=== PATIENT | female | born 1985 | race Caucasian/White ===

== ENCOUNTER → 2016-11-26 07:34 | Day surgery (SDC) | payer BC, OTHER ==
--- NOTE | 2016-11-05 08:26 | HP ---
PREOPERATIVE HISTORY AND PHYSICAL: DATE OF ADMISSION: 11/26/15 CHIEF COMPLAINT: Left wrist pain. HISTORY OF PRESENT ILLNESS: Ethel is a 31-year-old woman who injured her left wrist at work at [employer]. Date of injury is 10/16/13. 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 She has had conservative treatment, but now has failed that and presents for left wrist proximal row carpectomy for posttraumatic arthritis , which is formed from the scaphoid nonunion and she has carpal tunnel syndrome. She presents for treatment of both. PAST SURGICAL HISTORY: 1. Right little finger surgery. 2. Vein surgery in the right leg 3. Gastric sleeve 4. Cholecystectomy. MEDICATIONS: None. DRUG ALLERGIES: To NEXIUM, BACTRIM DOXYCYCLINE, PRILOSEC. FAMILY HISTORY: Noncontributory. SOCIAL HISTORY: She smokes a few cigarettes a day. She denies alcohol use. She is currently working. REVIEW OF SYSTEMS: Negative for cephalic, cardiovascular, respiratory, gastrointestinal, genitourinary, other musculoskeletal, skin, neurologic, endocrine, hematologic symptoms. She is having some symptoms from her right leg veins and has to have another vein surgery. PHYSICAL EXAMINATION GENERAL: She is a healthy-appearing very pleasant female in minimal distress at rest. VITAL SIGNS: She is 63 inches, weighs 250 pounds, blood pressure 116/70, pulse 60. HEENT: Unremarkable. She has good range of motion of her neck without pain and no masses are palpated. Her eye movements are concentric. LUNGS: Clear to auscultation. Good inspiratory effort. No wheezing. CARDIAC: Regular rate and rhythm without murmur. PERIPHERAL VASCULAR: She has palpable pulses. She has no peripheral edema. She has some prominent veins in her right lower extremity. EXTREMITIES: She has moderate decreased range of motion in flexion and extension of her left wrist. Tenderness at her dorsal radial carpal joint and positive Tinel's sign of the median nerve. NEUROLOGICAL: She is alert and oriented without focal deficits. IMPRESSION: Left carpal tunnel syndrome and scaphoid nonunion advanced collapse. PLAN: Left wrist proximal row carpectomy and carpal tunnel release. The surgical procedure, the risks and benefits were explained to the patient today and she agrees to proceed. This is approved by worker's comp. Prescription for [place] was sent to her pharmacy for postop pain control. We will her back in followup 10 to 14 days postop. [id number]/[facility] #: [id number] [place]
[~2016-11-26 07:34] MED LIST: Acetaminophen TAB* 325 MG PO PRN; Buffered Lidocaine 1% SYR 3ML* 3 ML/SYR SYRINGE INTRADERM ONE; Buffered Lidocaine 1% SYR 3ML* 3 ML/SYR SYRINGE ONE; Bupivacaine 0.5% SDV PF* 30 ML VIAL ONE; Dexamethasone IV* 4 MG/ML 1 ML (4 MG) ONE; Famotidine IV* 10 MG/ML 2 ML (20 mg) ONE; HYDROmorphone INJ* 1 MG/ML CARPUJECT SYRINGE IV PRN; Ketorolac INJ* 30 MG/ML 1 ML VIAL ONE; Lidocaine 0.5%* 50 ML SDV ONE; Lidocaine 1% INJ* 10 MG/ML 30 ML SDV ONE; Lidocaine 2% PF * 5 ML VIAL ONE; Midazolam* 1 MG/ML 2 ML VIAL (2 MG) ONE; Ondansetron INJ* 2 MG/ML VIAL IV PRN; PROCHLORPERAZINE INJ 5 MG/ML 2 ML VIAL IV PRN; Propofol* 10 MG/ML 20 ML BTL IV PUSH ONE; ceFAZolin 2 GM PREMIX (*) 2 GM/50 ML BAG IVPB ONE; fentaNYL* 50 MCG/ML 2 ML VIAL (100 MCG VIAL) ONE; oxyCODONE TAB* 5 MG TAB PO PRN
[2016-11-26 10:43] VITALS: BP 122/66
--- NOTE | 2016-11-27 02:09 | OP ---
CC: Dr. Diaz OPERATIVE REPORT: DATE OF OPERATION: 11/26/16 DATE OF : 87 SURGEON: Dr. Diaz. BREADMAN: MADELYN Gaines ANESTHESIA: IV regional. PRE-OP DIAGNOSIS: Scaphoid nonunion and carpal tunnel syndrome on the left wrist. POST-OP DIAGNOSIS: Scaphoid nonunion and carpal tunnel syndrome on the left wrist. OPERATIVE PROCEDURE: Left wrist proximal row carpectomy and carpal tunnel release. ESTIMATED BLOOD LOSS: Zero. TOURNIQUET TIME: About 45 minutes. INDICATIONS FOR PROCEDURE: Ethel is a 31-year-old female who had an injury at work. She suffered a fracture of her scaphoid and has a nonunion of proximal pole of the scaphoid with some early degene rative changes. She also has carpal tunnel syndrome, which has failed to improve with conservative measures. She presents for left carpal tunnel release and proximal row carpectomy. DESCRIPTION OF PROCEDURE: The patient was brought to the operating room, was given an IV regional a nesthetic with a tourniquet around her left upper arm. Skin of her left upper extremity was prepped and draped in the usual sterile fashion. A longitudinal incision was made in the palm in line with the ring finger. We dissected through the subcutaneous tissue, sharply down to the transverse carp al ligament. The ligament was divided sharply with a knife and then more proximally with the scisso rs. The nerve was dissected free from the surrounding tissue and there was an area of moderate comp ression at the mid portion of the ligament. The wound was irrigated and skin edges reapproximated w ith 4-0 nylon suture. Next, a dorsal longitudinal incision was made ulnar to Bouchra's tubercle, dis sected sharply down to the extensor retinaculum. The retinaculum was incised longitudinally in the third compartment and the EPL tendon transposed radially. The wrist joint capsule was then incised longitudinally and subperiosteally dissected off of the distal radius. This gave us good access to the proximal row carpal bones which were removed in their entirety with combination of a knife and r ongeur. The capitate articular surface was in excellent condition as was the lunate fossa. Capitate sat very nicely in the lunate fossa. The wound was copiously irrigated with saline and the wrist ca psule reapproximated with 2-0 Polysorb suture. Extensor retinaculum was repaired with 2-0 Polysorb s uture and the skin edges were reapproximated with 4-0 nylon suture. The wound was dressed with Xero form, 4x4, Webril, and volar splint. The patient tolerated the procedure well and was brought to doctors hospital recovery room in good condition. [id number]/[facility] #: [id number]
== END | disposition home or self-care (01) ==
LOC: OREAST 07:34
PROVIDERS: ATTEND Orthopaedic Surgery
DX: S62.032K Displaced fracture of proximal third of navicular [scaphoid] bone of left wrist, subsequent encounter for fracture with nonunion (principal); G56.02 Carpal tunnel syndrome, left upper limb; X50.3XXD Overexertion from repetitive movements, subsequent encounter; Y92.63 Factory as the place of occurrence of the external cause; F17.210 Nicotine dependence, cigarettes, uncomplicated
CPT/HCPCS: 88304; 88311; J0690; J1100; J1885; J2250; J2704; J3010

== ENCOUNTER 2018-02-12 17:12 | Emergency (ER) | payer BC ==
[2018-02-12 17:27] VITALS: BP 102/69
--- NOTE | 2018-02-12 18:32 | RAD ---
Indication: Low back pain. LEFT sciatica. LEFT lower extremity numbness. Comparison: No relevant prior exams available on the [facility] for comparison. Technique: AP, lateral, and oblique views lumbar sacral spine. Report: No cortical disruption or trabecular impaction to indicate a vertebral body fracture. Moderate L5-S1 disc space narrowing. Suggestion of bilateral L5 spondylolysis without associated spondylolisthesis. Multilevel facet joint osteoarthritis most prominent at L4-L5 and L5-S1. Unremarkable paraspinal soft tissue contours. IMPRESSION: Degenerative spondylosis and facet joint osteoarthritis most prominent at L5-S1. Suggestion of bilateral L5 spondylolysis without associated spondylolisthesis.
[2018-02-12] MEDS ORDERED: HYDROcodone/ACETAMIN 5-325 MG* 1 TAB PO ONE (19:00)
--- NOTE | 2018-02-12 20:30 | UC ---
Laci Harman Natalie, scribed for Charles Fitch MD on 02/12/18 at 1909 . Lower Extremity/Ankle HPI - HPI Summary HPI Summary: The patient is a 32 y/o F presenting to [facility] c/o intermittent left leg pain starting about 10 months ago, with a severe case of pain last night. The pain extends from her left buttock throughout her leg especially from her kneecap to ankle, and her left foot often becomes numb. The pain is described as burning and aching, and last night the pain was excruciating. Currently the pain is rated 2/10. The pain worsens when walking. She has taken Ibuprofen to treat the pain [employer]. 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 She stands a lot at work. - History of Current Complaint Chief Complaint: UCLowerExtremity Stated Complaint: LEG AND FOOT PAIN,NUMBNESS Time Seen by Provider: 02/12/18 17:39 Hx Obtained From: Patient Hx Last Menstrual Period: on merena Onset/Duration: Lasting Weeks - starting 10 months ago, Still Present, Worse Since - last night Severity Initially: Severe Severity Currently: Moderate Pain Intensity: 2 Pain Scale Used: 0-10 Numeric Aggravating Factor(s): Other - walking Alleviating Factor(s): Nothing Able to Bear Weight: Yes - Allergies/Home Medications Allergies/Adverse Reactions: Allergies Allergy/AdvReac Type Severity Reaction Status Date / Time banana Allergy Hives Verified 02/12/18 17:29 doxycycline Allergy Vomiting Verified 02/12/18 17:30 esomeprazole [From Nexium] Allergy Difficulty Verified 02/12/18 17:29 Breathing omeprazole [From Prilosec] Allergy Difficulty Verified 02/12/18 17:29 Breathing sulfamethoxazole Allergy GI Upset Verified 02/12/18 17:30 [From Bactrim] trimethoprim [From Bactrim] Allergy GI Upset Verified 02/12/18 17:30 Home Medications: Home Medications Ibuprofen [Advil] 800 02/12/18 [History] metFORMIN* [Glucophage 500 MG TAB *] 02/12/18 [History] PMH/Surg Hx/FS Hx/Imm Hx Previously Healthy: No GI/ History: Other - PCOS Other GI/ History: . - Surgical History Surgical History: None Surgery Procedure, Year, and Place: FINGER SURGERY, LEG VEIN LASER SURGERY, GASTRIC SLEEVE 2011 - Family History Known Family History: Negative: Hypertension - Social History Alcohol Use: None Substance Use Type: None Smoking Status (MU): Heavy Every Day Tobacco Smoker Type: Cigarettes Amount Used/How Often: 1/2 PPD Length of Time of Smoking/Using Tobacco: 12 YRS Have You Smoked in the Last Year: Yes Household Exposure Type: Cigarettes Review of Systems Musculoskeletal: Other: - left leg pain extending from buttock to ankle Neurological: Paresthesia - in left foot Is Patient Immunocompromised?: Yes All Other Systems Reviewed And Are Negative: Yes Physical Exam Triage Information Reviewed: Yes Appearance: Well-Appearing, No Pain Distress Vital Signs: Initial Vital Signs Temp 98.0 F 02/12/18 17:20 Pulse 58 02/12/18 17:20 Resp 16 02/12/18 17:20 BP 102/69 02/12/18 17:20 Pulse Ox 98 02/12/18 17:20 Vital Signs Reviewed: Yes Eyes: Positive: Other: - EOMI, KASH ENT: Positive: Normal ENT inspection Neck: Positive: Supple, Nontender Respiratory: Positive: Other: - CTA, breath sounds present Cardiovascular Exam: Normal Cardiovascular: Positive: RRR Abdominal Exam: Normal Abdomen Description: Positive: Nontender, Soft Bowel Sounds: Positive: Present Musculoskeletal: Positive: Strength Intact, ROM Intact, Other: - tenderness in low back and low SI joint through left buttock, reports decreased sensation in medial left foot, reflexes normal, capillary refill normal Neurological: Positive: Other: - normal, sensory/motor intact, A&O x3 Psychological Exam: Normal Psychological: Positive: Other: - affect/mood appropriate Skin: Positive: Other - warm, color reflects adequate perfusion, dry Diagnostics - Radiology Lumbar Spine XR Xray Interpretation: Positive (See Comments) - Degenerative spondylosis and facet joint osteoarthritis most prominent at L5-S1. Suggestion of bilateral L5 spondylolysis without associated spondylolisthesis. [facility] physician has reviewed this report. Radiology Interpretation Completed By: Radiologist Lower Extremity Course/Dx - Course Course Of Treatment: Medications reviewed. Allergies noted. PATIENT REPORTS NUMBNESS ON THE MEDIAL ASPECT OF THE LEFT FOOT. THIS IS INTERMITTENT. NO PERSISENT NEUROLOGIC DEFICIT. F/U PMD. DISCUSSED IF GETS PERSISTANT NEUROLOGIC DEFICIT OR WEAKNESS OR DIFFICULTY CONTROLLING BOWEL OR BLADDER TO GET RECHECKED RIGHT AWAY. - Differential Dx/Diagnosis Provider Diagnoses: LOW BACK PAIN. LEFT SCIATICA Discharge - Sign-Out/Discharge Documenting (check all that apply): Discharge - Discharge Plan Condition: Stable Disposition: HOME Discharge Disposition Comment: The pt will be discharged home. Prescriptions: HYDROcodone/ACETAMIN 5-325 MG* [[place] 5-325 TAB*] 1 tab PO Q4H PRN #20 tab MDD 6 PRN Reason: Pain Patient Education Materials: Sciatica (ED), Lumbar Radiculopathy (ED), Lower Back Exercises (ED) Referrals: Levi Avendano [Primary Care Provider] - Additional Instructions: FOLLOW UP WITH YOUR DOCTOR. GET RECHECKED FOR ANY WORSENING OF YOUR CONDITION;WEAKNESS, NUMBNESS THAT DOES NOT RESOLVE, DIFFICULTY CONTROLLING BOWEL OR BLADDER OR QUESTIONS OR CONCERNS. - Billing Disposition and Condition Condition: STABLE Disposition: HOME The documentation as recorded by the Laci stafford Natalie accurately reflects the service I personally performed and the decisions made by me, Charles Fitch MD.
== END 2018-02-12 19:19 | disposition home or self-care (01) ==
LOC: UCEAST 17:12
DX: M54.5 Low back pain (principal); Z88.1 Allergy status to other antibiotic agents; M54.32 Sciatica, left side; Z88.8 Allergy status to other drugs, medicaments and biological substances; Z91.018 Allergy to other foods
CPT/HCPCS: 72110; 99212; G0463

== ENCOUNTER 2019-08-20 11:13 | Emergency (ER) | payer BC, OTHER ==
[2019-08-20 11:45] VITALS: BP 113/65
--- NOTE | 2019-08-20 11:56 | UC ---
Throat Pain/Nasal Rohith HPI - HPI Summary HPI Summary: 34 year old female with no PMH, + tob use presents with s/s starting ~ 5 days ago- sore throat, fever/ chills, body aches. S/S resolved, however ~ 1-2 days ago developed throat pain, deeper, with cough, non-productive, worse with deep breathing. Denies wheezing, ear pain, nasal pain, no GI symptoms. Denies other symptoms. Denies jaw/ shoulder/ arm pain. is having migraines, is taking 800mg of motrin which works however should not be taking due to gastric bypass. - History of Current Complaint Chief Complaint: UCRespiratory Stated Complaint: CONGESTED Time Seen by Provider: 08/20/19 11:54 Hx Obtained From: Patient Hx Last Menstrual Period: iud ?: No Onset/Duration: Sudden Onset, Lasting Days Pain Intensity: 0 Pain Scale Used: 0-10 Numeric Cough: Nonproductive Associated Signs & Symptoms: Negative: Dysphagia, FB Sensation, Drooling, Wheezing, Hoarseness, Sinus Discomfort, Nasal Discharge, Fever, Vomiting Related History: Smoking - Allergies/Home Medications Allergies/Adverse Reactions: Allergies Allergy/AdvReac Type Severity Reaction Status Date / Time banana Allergy Hives Verified 08/20/19 11:45 doxycycline Allergy Vomiting Verified 08/20/19 11:45 esomeprazole [From Nexium] Allergy Difficulty Verified 08/20/19 11:45 Breathing omeprazole [From Prilosec] Allergy Difficulty Verified 08/20/19 11:45 Breathing sulfamethoxazole Allergy GI Upset Verified 08/20/19 11:45 [From Bactrim] trimethoprim [From Bactrim] Allergy GI Upset Verified 08/20/19 11:45 Home Medications: Home Medications D-Methorphan/PE/Acetaminophen [Vicks Dayquil Liquicaps] 1 cap PO 08/20/19 [ History] PMH/Surg Hx/FS Hx/Imm Hx Previously Healthy: Yes - Surgical History Surgical History: None Surgery Procedure, Year, and Place: FINGER SURGERY, LEG VEIN LASER SURGERY, GASTRIC SLEEVE 2011 - Family History Known Family History: Positive: Non-Contributory Negative: Hypertension - Social History Occupation: Employed Full-time Alcohol Use: Rare Substance Use Type: None Smoking Status (MU): Heavy Every Day Tobacco Smoker Type: Cigarettes Amount Used/How Often: 1/2 PPD Length of Time of Smoking/Using Tobacco: 12 YRS Have You Smoked in the Last Year: Yes Household Exposure Type: Cigarettes Review of Systems All Other Systems Reviewed And Are Negative: Yes Constitutional: Negative: Fever, Chills, Fatigue ENT: Positive: Sore Throat Respiratory: Positive: Cough Psychological: Positive: Negative Is Patient Immunocompromised?: No Physical Exam Triage Information Reviewed: Yes Appearance: Well-Appearing, No Pain Distress, Well-Nourished Vital Signs: Initial Vital Signs Temp 97.4 F 08/20/19 11:39 Pulse 125 08/20/19 11:39 Resp 18 08/20/19 11:39 BP 113/65 08/20/19 11:39 Pulse Ox 97 08/20/19 11:39 Vital Signs Reviewed: Yes Eyes: Positive: Conjunctiva Clear ENT: Positive: Pharynx normal, TMs normal, Uvula midline. Negative: Pharyngeal erythema, TM bulging, TM dull, Tonsillar swelling, Tonsillar exudate, Sinus tenderness Neck: Positive: Supple, Nontender, No Lymphadenopathy. Negative: Nuchal Rigidity, Enlarged Nodes @ Respiratory: Positive: Chest non-tender, Lungs clear, Normal breath sounds, No respiratory distress, No accessory muscle use. Negative: Respiratory distress, Decreased breath sounds, Crackles, Rhonchi, Stridor, Wheezing, Expiration Cardiovascular: Positive: RRR, No Murmur Abdomen Description: Negative: CVA Tenderness (R), CVA Tenderness (L) Neurological: Positive: Alert Skin Exam: Normal Throat Pain/Nasal Course/Dx - Course Course Of Treatment: pulse rechecked in room, 90 BPM. Acute Bronchitis - Increase fluid intake - Humidifer at night to help with symtpoms - Continue over the counter medication for cough such as NyQuil, Robutussin - Tessalon Perles every 8 hours as needed for cough - Tylenol as needed for pain, aches - Return with shortness of breath, fever > 101, wheezing, or worsening symptoms - WOrk note given as needed - Differential Dx/Diagnosis Provider Diagnosis: Acute bronchitis Discharge ED - Sign-Out/Discharge Documenting (check all that apply): Patient Departure All imaging exams completed and their final reports reviewed: No Studies - Discharge Plan Condition: Good Disposition: HOME Prescriptions: Benzonatate CAP* [Tessalon 100 MG CAP*] 100 mg PO TID #15 cap Patient Education Materials: Acute Bronchitis (ED) Forms: *Work Release Referrals: Levi Carballo PA [Primary Care Provider] - Additional Instructions: Acute Bronchitis - Increase fluid intake - Humidifer at night to help with symtpoms - Continue over the counter medication for cough such as NyQuil, Robutussin - Tessalon Perles every 8 hours as needed for cough - Tylenol as needed for pain, aches - Return with shortness of breath, fever > 101, wheezing, or worsening symptoms - WOrk note given as needed - Billing Disposition and Condition Condition: GOOD Disposition: Home
== END 2019-08-20 12:35 | disposition home or self-care (01) ==
LOC: UCEAST 11:13
DX: J20.9 Acute bronchitis, unspecified (principal); G43.909 Migraine, unspecified, not intractable, without status migrainosus; F17.210 Nicotine dependence, cigarettes, uncomplicated; Z98.84 Bariatric surgery status; Z91.018 Allergy to other foods; Z88.8 Allergy status to other drugs, medicaments and biological substances; Z88.1 Allergy status to other antibiotic agents; Z88.2 Allergy status to sulfonamides
CPT/HCPCS: 99212; G0463

== ENCOUNTER 2019-11-17 13:41 | Emergency (ER) | payer OTHER ==
--- NOTE | 2019-11-17 14:14 | ED ---
Lower Extremity - HPI Summary HPI Summary: Patient is a 34 y/o F presenting to the ED for a chief complaint of right upper thigh pain. Patient states she can feel a ropey vein in her right calf, and describes warmth to the right LE. She notes a throbbing and pulsating sensation in the right LE. She also reports intermittent cramping and swelling in her fingers. She last noticed sudden swelling in the left ring finger that lasted for 3 days before resolving. She states she has headaches, fatigue, and has gained weight recently despite attempting to lose weight. She admits recent stress. Patient denies edema at the present time. She is able to bear weight. PMHx is significant for blood clots and DVT. PSHx is significant for right LE vein surgery. SHx is significant for tobacco use. She has an IUD placed. - History of Current Complaint Chief Complaint: EDExtremityLower Stated Complaint: RIGHT LEG PAIN Time Seen by Provider: 11/17/19 14:10 Hx Obtained From: Patient Hx Last Menstrual Period: iud Mechanism Of Injury: Other - None Onset of Pain: Prior to Arrival Onset/Duration: Still Present Severity Initially: Mild Severity Currently: Mild Pain Intensity: 0 Pain Scale Used: 0-10 Numeric Timing: Constant Location: Is Discrete @ - Right upper thigh pain Character Of Pain: Throbbing - And pulsating Associated Signs And Symptoms: Positive: Swelling - Left ring finger, resolved Aggravating Factor(s): Nothing Alleviating Factor(s): Nothing Able to Bear Weight: Yes - Allergies/Home Medications Allergies/Adverse Reactions: Allergies Allergy/AdvReac Type Severity Reaction Status Date / Time banana Allergy Hives Verified 11/17/19 13:48 doxycycline Allergy Vomiting Verified 11/17/19 13:48 esomeprazole [From Nexium] Allergy Difficulty Verified 11/17/19 13:48 Breathing omeprazole [From Prilosec] Allergy Difficulty Verified 11/17/19 13:48 Breathing sulfamethoxazole Allergy GI Upset Verified 11/17/19 13:48 [From Bactrim] trimethoprim [From Bactrim] Allergy GI Upset Verified 11/17/19 13:48 PMH/Surg Hx/FS Hx/Imm Hx Previously Healthy: Yes Endocrine/Hematology History: Reports: Hx Diabetes - PCOS Denies: Hx Thyroid Disease Cardiovascular History: Reports: Hx Deep Vein Thrombosis, Hx Peripheral Vascular Disease - RIGHT LEG VARICOSITIES Denies: Hx Hypertension Respiratory History: Reports: Hx Sleep Apnea - Uses CPAP, Other Respiratory Problems/Disorders - WOKE WITH SORE THROAT TODAY, WILL FU WITH PRIMARY Denies: Hx Asthma, Hx Chronic Obstructive Pulmonary Disease (COPD) GI History: Reports: Hx Gastroesophageal Reflux Disease - IN THE PAST-BETTER NOW Denies: Hx Ulcer Musculoskeletal History: Reports: Other Musculoskeletal History - 09/2013 LEFT WRIST FRACTURE WITH NONUNION Sensory History: Denies: Hx Contacts or Glasses, Hx Legally Blind, Hx Deafness, Hx Hearing Aid Opthamlomology History: Denies: Hx Contacts or Glasses, Hx Legally Blind EENT History: Denies: Hx Deafness Neurological History: Reports: Hx Headaches - takes Ibuprofen 800 mg w/ relief, Other Neuro Impairments/Disorders - NUMBNESS AND TINGLING IN LEFT HAND R/T CARPAL TUNNELAND FX Psychiatric History: Reports: Hx Anxiety, Hx Depression Denies: Hx Suicide Attempt, Hx Substance Abuse - Surgical History Surgical History: Yes Surgery Procedure, Year, and Place: FINGER SURGERY, LEG VEIN LASER SURGERY, GASTRIC SLEEVE 2011 Hx Anesthesia Reactions: No Infectious Disease History: No Infectious Disease History: Denies: Hx Clostridium Difficile, Hx Hepatitis, Hx Human Immunodeficiency Virus (HIV), Hx of Known/Suspected MRSA, Hx Shingles, Hx Tuberculosis, Hx Known/ Suspected VRE, Hx Known/Suspected VRSA, History Other Infectious Disease, Traveled Outside the [place] in Last 30 Days - Family History Known Family History: Negative: Cardiac Disease, Hypertension, Diabetes - Social History Occupation: Employed Full-time Lives: With Family Alcohol Use: Rare Hx Substance Use: No Substance Use Type: Reports: None Hx Tobacco Use: Yes Smoking Status (MU): Heavy Every Day Tobacco Smoker Type: Cigarettes Amount Used/How Often: 1/2 PPD Length of Time of Smoking/Using Tobacco: 12 YRS Have You Smoked in the Last Year: Yes Review of Systems Positive: Fatigue, Other - Positive weight gain Positive: Myalgia - Right upper thigh, Edema - Left ring finger, resolved; no edema at the present time, Other - Positive warmth to the right LE Positive: Other - Positive "ropey" vein in the right calf Positive: Headache All Other Systems Reviewed And Are Negative: Yes Physical Exam - Summary Physical Exam Summary: Constitutional: Well-developed, Well-nourished, Alert. (-) Distressed Skin: Warm, Dry HENT: Normocephalic; Atraumatic Eyes: Conjunctiva normal Neck: Musculoskeletal ROM normal neck. (-) JVD, (-) Stridor, (-) Nuchal rigidity Cardio: Rhythm regular, rate normal, Heart sounds normal; Intact distal pulses; Radial pulses are 2+ and symmetric. (-) Murmur Pulmonary/Chest wall: Effort normal. (-) Respiratory distress, (-) Wheezes, (-) Rales Abd: Soft, (-) tenderness, (-) Distension, (-) Guarding, (-) Rebound Musculoskeletal: (-) Edema Lymph: (-) Cervical adenopathy Neuro: Alert, Oriented x3 Psych: Mood and affect Normal Triage Information Reviewed: Yes Vital Signs On Initial Exam: Initial Vitals Temp Pulse Resp BP Pulse Ox 97.1 F 76 16 141/65 99 11/17/19 13:44 11/17/19 13:44 11/17/19 13:44 11/17/19 13:44 11/17/19 13:44 Vital Signs Reviewed: Yes Procedures - Sedation Patient Received Moderate/Deep Sedation with Procedure: No Diagnostics - Vital Signs Vital Signs Temp Pulse Resp BP Pulse Ox 11/17/19 13:44 97.1 F 76 16 141/65 99 - Laboratory Result Diagrams: 11/17/19 14:51 11/17/19 14:50 Lab Statement: Any lab studies that have been ordered have been reviewed, and results considered in the medical decision making process. - Ultrasound Venous Doppler Study Ultrasound Interpretation Completed By: Radiologist Summary of Ultrasound Findings: Venous Doppler Study IMPRESSION: NO EVIDENCE FOR DEEP VENOUS THROMBOSIS. Reviewed by Dr. Schreiber. Lower Extremity Course/Dx - Course Course Of Treatment: 34-year-old female with a history of the right lower extremity DVT presents with concern for recurrent DVT. - Physical exam of obvious swelling, 2+ DP pulse. Ultrasound of the right x-ray did not show any DVT, advised to follow-up in one week if she has persistent symptoms. Regarding fatigue cbc, electrolytes and TSH within normal limits. - Diagnoses Provider Diagnoses: Right leg swelling Discharge ED - Sign-Out/Discharge Documenting (check all that apply): Patient Departure - Discharge - Discharge Plan Condition: Stable Disposition: HOME Patient Education Materials: Leg Edema (ED) Referrals: Levi Carballo PA [Primary Care Provider] - Additional Instructions: You were seen in the emergency department for right leg swelling. Your ultrasound did not show any evidence of DVT. If you continues to have symptoms, please have this repeated in one week. Please follow up with your primary care doctor in next 2-3 days and return to emergency department for worsening or concerning symptoms. It was a pleasure taking care of you today. - Billing Disposition and Condition Condition: STABLE Disposition: Home - Attestation Statements Document Initiated by Martinez: Yes Documenting Scribe: Kenyetta Padilla Provider For Whom Martinez is Documenting (Include Credential): Daniel Schreiber MD Scribe Attestation: I, Kenyetta Padilla, scribed for Daniel Schreiber MD on 11/17/19 at 1706. Scribe Documentation Reviewed: Yes Provider Attestation: The documentation as recorded by the Kenyetta stafford accurately reflects the service I personally performed and the decisions made by me, Daniel Schreiber MD Status of Scribe Document: Viewed
[2019-11-17 15:04] LABS: ABS Basophils 0.1 10^3/ul (0-0.2); ABS Eosinophils 0.2 10^3/ul (0-0.6); ABS Lymphocytes 2.2 10^3/ul (1.0-4.8); ABS Monocytes 0.9 10^3/ul (0-0.8); ABS Neutrophils 8.3 10^3/ul (1.5-7.7); Eosinophil % 1.8 %; Hematocrit 44 % (35-47); Hemoglobin 15.3 g/dL (12.0-16.0); Lymphocyte % 19.2 %; Mean Corpuscular HGB Conc 35 g/dL (31-36); Mean Corpuscular Hemoglobin 32 pg (27-31); Mean Corpuscular Volume 92 fL (80-97); Mean Platelet Volume 8.8 fL (7.4-10.4); Platelet Count 217 10^3/uL (150-450); Red Blood Count 4.83 10^6 /uL (3.70-4.87); Red Cell Distribution Width 13 % (10-15); White Blood Count 11.7 10^3/uL (3.5-10.8)
[2019-11-17 15:14] LABS: Albumin 3.9 g/dL (3.2-5.2); Albumin/Globulin Ratio 1.6 (1-3); BUN/Creatinine Ratio 16.7 (8-20); Calcium 8.8 mg/dL (8.6-10.3); EGFR African American 102.9 (>60); EGFR Non-African American 85.1 (>60); Globulin 2.4 g/dL (2-4); Total Bilirubin 0.4 mg/dL (0.2-1.0); Total Protein 6.3 g/dL (6.4-8.9)
[2019-11-17 15:17] LABS: INR 1.03 (0.82-1.09)
[2019-11-17 16:12] LABS: TSH (Thyroid Stimulating Horm) 1.11 mcIU/mL (0.34-5.60)
[2019-11-17 17:00] LABS: Potassium 4.5 mmol/L (3.5-5.0)
[2019-11-17 17:16] VITALS: BP 145/106
== END 2019-11-17 17:12 | disposition home or self-care (01) ==
LOC: ED 13:41
DX: M79.89 Other specified soft tissue disorders (principal); E11.9 Type 2 diabetes mellitus without complications; I73.9 Peripheral vascular disease, unspecified; F41.9 Anxiety disorder, unspecified; Z86.718 Personal history of other venous thrombosis and embolism; F17.210 Nicotine dependence, cigarettes, uncomplicated; Z88.1 Allergy status to other antibiotic agents; Z88.2 Allergy status to sulfonamides; Z88.8 Allergy status to other drugs, medicaments and biological substances
CPT/HCPCS: 36415; 80053; 84443; 85025; 85610; 99282